=== PATIENT | female | born 1950 | race Caucasian/White ===

== ENCOUNTER 2016-07-31 16:46 | Inpatient (IN) | payer MEDICARE ==
[2016-07-31] MEDS ORDERED: ONDANSETRON 4 MG/2ML 2 ML VIAL ONE (17:55)
[2016-07-31] MEDS ORDERED: LACTATED RINGERS 1,000 ML ONE ×2 (17:55→18:52)
[2016-07-31 18:12] LABS: ABSOLUTE NEUTROPHIL COUNT 18.2 K/mm3 (1.8-7.7); BASO # 0.1 K/mm3 (0.0-0.2); BASO % 0.2 % (0.2-1.0); EOS # 0.3 (0.0-0.5); EOS % 1.3 % (0.9-2.9); HEMATOCRIT 46.6 % (37.0-47.0); IMM NEUT # 0.1 K/mm3 (0-0.2); IMM NEUT% 0.6 % (0-1); LYMPH # 0.6 (1.0-4.8); LYMPH % 3.2 % (15-45); MEAN CELL VOLUME 95.3 fl (81.0-99.0); MEAN CORPUSCULAR HEMOGLOBIN 30.7 pg (27.0-31.0); MEAN CORPUSCULAR HGB CONC 32.2 g/dl (33.0-37.0); MONO # 0.8 (0.0-0.8); MONO % 3.9 % (4-12); NEUT % 90.8 % (43-75); PLATELET COUNT 233 K/mm3 (130-400); RED CELL DISTRIBUTION WIDTH 12.8 % (11.5-14.5)
[2016-07-31 18:39] LABS: ALB/GLOB RATIO 1.2 (>1.0); ALBUMIN 4.3 gm/dL (3.5-5.7); CALCIUM 9.7 mg/dL (8.6-10.3)
[2016-07-31] MEDS ORDERED: PIPERACILLIN-TAZO PREMIX BAG 50 ML IV ONE (19:13)
[2016-07-31] MEDS ORDERED: VANCOMYCIN HCL 2 G in SODIUM CHLORIDE 0.9% 500 ML IV ONE (19:15)
[2016-07-31] MEDS ORDERED: VANCOMYCIN HCL 2.25 G in SODIUM CHLORIDE 0.9% 500 ML IV ONE (19:15)
[2016-07-31 19:40] LABS: BAND 4 % (0-10); BASOPHIL 0 % (0-1); EOSINOPHIL 1 % (1-3); LYMPHOCYTE 2 % (15-45); MONOCYTE 1 % (4-12); NEUTROPHILS 92 % (43-75); PLATELET ESTIMATE NORMAL (NORMAL); TOTAL CELLS COUNTED 100
[2016-07-31] MEDS ORDERED: ACETAMINOPHEN 500 MG TABLET ONE (19:44)
[2016-07-31 20:20] LABS: URINE BILIRUBIN NEGATIVE (NEGATIVE); URINE BLOOD 3+ (NEGATIVE); URINE GLUCOSE (UA) NEGATIVE (NEGATIVE); URINE LEUKOCYTE ESTERASE NEGATIVE (NEGATIVE); URINE NITRITE NEGATIVE (NEGATIVE); URINE PROTEIN TRACE (NEGATIVE); URINE UROBILINOGEN NORMAL (0-1 mg/dl)
[2016-07-31 20:23] LABS: URINE APPEARANCE CLEAR; URINE COLOR YELLOW
[2016-07-31] MEDS ORDERED: BISACODYL 10 MG SUP PR PRN (20:30)
[2016-07-31] MEDS ORDERED: MENTHOL/CETYLPYRD 1 EACH LOZENGE PO PRN (20:30)
[2016-07-31] MEDS ORDERED: INSULIN ASPART (DOSE) 100 UNITS/1 ML SUB-Q PRN (20:30)
[2016-07-31] MEDS ORDERED: BISACODYL 5 MG TABLET.EC PO PRN (20:30)
[2016-07-31] MEDS ORDERED: BLISTEX LIPSTICK 1 EACH TP PRN (20:30)
[2016-07-31] MEDS ORDERED: MAGNESIUM HYDROXIDE 30 ML UDCUP PO PRN (20:30)
[2016-07-31 20:46] VITALS: BMI 41.5
[2016-07-31 20:50] LABS: URINE EPITHELIAL CELLS 0-1 /hpf; URINE WBC 0-1 /hpf
[2016-07-31] MEDS: DOCUSATE SODIUM 100 MG CAPSULE PO SCH (20:51)
[2016-07-31] MEDS: HYDROCODONE/ACETAMINOPHEN 5/325MG TABLET PO PRN (20:51)
[2016-07-31] MEDS: LACTATED RINGERS 1,000 ML IV SCH (20:52)
[2016-07-31 20:53] LABS: URINE BACTERIA FEW
[2016-07-31 20:54] LABS: URINE AMORPHOUS SEDIMENT FEW URATES
[2016-07-31] MEDS ORDERED: ENOXAPARIN SODIUM 40 MG/0.4 ML SYRINGE SUB-Q SCH (21:00)
[2016-07-31] MEDS ORDERED: Clobetasol Propionate 0.05% TP PRN (21:12)
[2016-07-31] MEDS ORDERED: NITROGLYCERIN 0.4 MG/TAB.SUBL BOT SL PRN (21:12)
[2016-07-31] MEDS ORDERED: METFORMIN HCL 1,000 MG TABLET PO SCH (21:15)
[2016-07-31] MEDS ORDERED: POTASSIUM CHLORIDE 8 MEQ TABLET.DR PO ONE (21:28)
[2016-07-31] MEDS: DIPHENHYDRAMINE HCL 25 MG CAPSULE PO PRN (22:09)
[2016-07-31] MEDS: CYCLOBENZAPRINE HCL 10 MG TABLET PO PRN (22:09)
[2016-07-31] MEDS: METFORMIN XR 500 MG TAB.XL PO SCH (22:09)
[2016-07-31] MEDS: GABAPENTIN 300 MG CAPSULE PO SCH (22:11)
[2016-07-31] MEDS: OXYCODONE HCL 5 MG TABLET PO PRN (23:02)
[2016-08-01] MEDS: PIPERACILLIN-TAZO PREMIX BAG 3.375 G in Premix (D5W) 50 ml 1 EACH IV SCH ×4 (01:09→20:33)
[2016-08-01] MEDS: HYDROCODONE/ACETAMINOPHEN 5/325MG TABLET PO PRN ×2 (03:46→20:54)
[2016-08-01 05:43] LABS: ABSOLUTE NEUTROPHIL COUNT 24.9 K/mm3 (1.8-7.7); BASO # 0.1 K/mm3 (0.0-0.2); BASO % 0.2 % (0.2-1.0); EOS % 0.1 % (0.9-2.9); HEMATOCRIT 38.5 % (37.0-47.0); HEMOGLOBIN 12.5 gm/l (12.0-16.0); IMM NEUT # 0.3 K/mm3 (0-0.2); IMM NEUT% 1.2 % (0-1); LYMPH # 0.8 (1.0-4.8); MEAN CELL VOLUME 95.3 fl (81.0-99.0); MEAN CORPUSCULAR HEMOGLOBIN 30.9 pg (27.0-31.0); MEAN CORPUSCULAR HGB CONC 32.5 g/dl (33.0-37.0); MEAN PLATELET VOLUME 12.5 fl (7.4-10.4); MONO % 3.8 % (4-12); NEUT % 91.7 % (43-75); PLATELET COUNT 171 K/mm3 (130-400)
[2016-08-01 06:07] LABS: CALCIUM 8.5 mg/dL (8.6-10.3)
[2016-08-01] MEDS: LEVOTHYROXINE SODIUM 100 MCG TABLET PO SCH (07:09)
[2016-08-01] MEDS: OXYCODONE HCL 5 MG TABLET PO PRN ×2 (07:20→16:09)
[2016-08-01] MEDS: LACTATED RINGERS 1,000 ML IV SCH ×4 (07:30→23:02)
[2016-08-01] MEDS ORDERED: LACTATED RINGERS 500 ML IV ONE (08:10)
--- NOTE | 2016-08-01 08:20 | HP ---
Pennie Munson [id number] DATE OF ADMISSION: 07/31/2016 CHIEF COMPLAINT: Worsening skin infection. HISTORY OF PRESENT ILLNESS: The patient is a 66-year-old female who recently had a punch biopsy done on her left lower leg on July 29 and noticed chills this morning with a fever up to 101.4 degrees at 2:00 p.m. She did notice some redness in her lower leg and eventually her sister convinced her to come in for further evaluation. [facility] Workup in the emergency department revealed that she was tachycardic, had marked leukocytosis with lactic acidosis prompting her referral to the hospitalist service for admission. REVIEW OF SYSTEMS: Significant for fever and chills starting today as I mentioned. She denies any recent upper respiratory symptoms, cough, or chest pain. She has chronic dyspnea on exertion which is unchanged. She denies any orthopnea or nocturnal dyspnea. She has some chronic lower extremity edema which is at baseline. She denies nausea, vomiting, abdominal pain, diarrhea, or constipation. She does suffer from chronic back pain which is unchanged. She denies any headaches, fainting, blackouts, or seizures. She has had no urinary complaints. Review of systems is otherwise negative. PAST MEDICAL HISTORY: Significant for glucose intolerance treated with metformin. She has had a history of intermittent chest pain relieved with nitroglycerin despite a negative cardiac workup. She does have chronic diastolic congestive heart failure. She was hospitalized about two years ago for chest pain and had an angiogram at that time. She is followed by a brush holder assembler. She has had a remote history of obstructive sleep apnea, but reports she was told after a repeat sleep study that she did not need CPAP therapy and has not used CPAP for the last six years. She reports being hospitalized at [facility] about 5 to 7 years ago for an MRSA infection involving the right arm and leg and she has had no recent hospitalizations. She also has a history of hypothyroidism, gastroesophageal reflux disease, and chronic dermatitis. She has had multiple skin cancers and followed by heavy forger. 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 She had a benign tumor removed from her left hand years ago. She had arthroscopic surgery on the left knee. She had surgery on the left foot for removal of a bone spur. She has had previous laparoscopic cholecystectomy. She has had a previous hysterectomy with bilateral oophorectomy and incidental appendectomy. She had a coronary angiogram about 2013 which was clear. ALLERGIES: DOCUMENTED TO CODEINE, LATEX, NICKEL, SULFA, WALNUTS, ZITHROMAX, BUPRENORPHINE, KEFLEX, AND ADHESIVE TAPE. CURRENT MEDICATIONS: Consist of: 1. Lasix 20 mg every morning. 2. Spironolactone 50 mg daily. 3. Prilosec 20 mg daily. 4. Nitroglycerin 0.4 mg sublingual every 5 minutes as needed for chest pain. 5. Metformin 1000 mg at bedtime. 6. Melatonin 3 mg at bedtime as needed for sleep. 7. Claritin 10 mg daily for allergies. 8. Levothroid 100 mcg daily. 9. Neurontin 300 mg twice daily. 10. Flonase nasal spray two sprays in each nostril daily. 11. Estrace 0.5 mg daily. 12. Flexeril 5 mg at bedtime as needed for pain. 13. Clobesol propionate 1 application topically to skin rash twice daily as needed. 14. Tylenol 325 mg every four hours as needed for pain or fever. FAMILY HISTORY: Significant for a father who in his 30's of an abdominal aortic aneurysm due to complications from the repair. Her mother of lung cancer. She has an aunt and a daughter with diabetes. SOCIAL HISTORY: Patient currently is single. She lives with her sister. She has a son and two daughters. 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 She drinks alcohol socially. Denies drug use or tobacco use. Her primary care provider is Isabel Charles at [facility]. PHYSICAL EXAMINATION: VITAL SIGNS: Body mass index 41.6, weight 113 kg, temperature 99.0, pulse 104, blood pressure 136/76, respirations 18, oxygen saturation is 96% on room air. GENERAL: This is an obese female in no acute distress. HEENT: Shows pupils equal, round, and reactive to light. Extraocular movements are intact. No oral lesions are present. NECK: Supple without lymphadenopathy or thyromegaly. LUNGS: Clear to auscultation bilaterally. CARDIOVASCULAR: Reveals a regular tachycardia without a murmur. ABDOMEN: Obese, soft, nontender, nondistended with positive bowel sounds. GENITOURINARY: Deferred. RECTAL: Deferred. EXTREMITIES: Show trace lower extremity edema. She has circumferential erythema involving the left lower leg from approximately the ankle to below the knee. The skin edges were marked. She has full range of motion at the ankle and the knee. She has approximately a 1 cm scab in the anterior left lower leg which appears to be the source of infection. There is some ecchymotic area extending about 3 cm in all directions from the ulcerated scab. There is no active drainage. No fluctuance. Dorsalis pedis pulses are 2+ at both feet. LABORATORY STUDIES: Showed a CBC with a white count of 20,000, hemoglobin is 15, platelet count is 233,000 with 92% neutrophils, 4% bands. Initial lactate was 2.4, follow up lactate was coming down to 2.1. Chemistry profile showed a sodium of 136, potassium 3.5, carbon dioxide 26, creatinine 0.9, glucose 107. Liver function tests were normal. Urinalysis was remarkable for 3+ blood, but otherwise clear. ASSESSMENT: Cellulitis involving the left lower leg with severe sepsis as demonstrated by lactic acidosis, tachycardia and marked leukocytosis. She has morbid obesity which complicates her care as well as glucose intolerance. She has a history of chronic diastolic heart failure which seems to be stable. She has a history of hypothyroidism which seems to be stable. Gastroesophageal reflux disease, stable. Chronic allergic rhinitis, stable. Chronic back pain, stable. PLAN: Patient has been admitted to the intermediate care unit. She received part of a 30 mL/kg bolus. At this point she is hemodynamically stable and I will maintain her on lactated ringers at 125 mL per hour. Will get a follow up lactate in the morning. She will be covered with vancomycin and Zosyn. I do feel this is probably a Streptococcal infection and will consider switching her to an anti-Streptococcal regimen in the next 48 hours as long as her cultures remain negative and she is stable and improving. Deep venous thrombosis risk is moderate and await adjusted Lovenox dose has been prescribed. Further treatment and recommendations will depend on her hospital course. JOB: [id number] CC: Isabel Charles NP at [facility]
[2016-08-01] MEDS ORDERED: SPIRONOLACTONE 50 MG TABLET PO SCH (09:00)
[2016-08-01] MEDS ORDERED: FUROSEMIDE 20 MG TABLET PO SCH (09:00)
[2016-08-01] MEDS ORDERED: FLUTICASONE PROPIONATE 50 MCG/SPRAY 120 SPRAYS/16 G INH NS SCH (09:00)
[2016-08-01] MEDS ORDERED: OMEPRAZOLE 20 MG CAPSULE.DR PO SCH (09:00)
[2016-08-01] MEDS: GABAPENTIN 300 MG CAPSULE PO SCH ×2 (09:20→20:54)
[2016-08-01] MEDS: PANTOPRAZOLE 40 MG TABLET DR PO SCH (09:20)
[2016-08-01] MEDS: ENOXAPARIN SODIUM 40 MG/0.4 ML SYRINGE SUB-Q SCH ×2 (09:20→20:53)
[2016-08-01] MEDS: LORATADINE 10 MG TABLET PO SCH (09:20)
[2016-08-01] MEDS: DOCUSATE SODIUM 100 MG CAPSULE PO SCH ×2 (09:20→20:54)
[2016-08-01] MEDS: ESTRADIOL 0.5 MG TABLET PO SCH (09:20)
--- NOTE | 2016-08-01 11:01 | PDOC43 ---
- Subjective Chief Complaint: FEVER Subjective: Denies Chest Pain, Denies Abdominal Pain, Denies Vomiting, Denies Fever - Objective Vital Signs Temperature 98.2 F 08/01/16 07:45 Pulse Rate 72 08/01/16 07:45 Respiratory Rate 16 08/01/16 07:45 Blood Pressure 106/59 08/01/16 07:45 O2 Saturation by Pulse Oximetry 97 08/01/16 07:45 Oxygen Delivery Method Room Air Oxygen Flow Rate 0 Intake and Output 07/31/16 08/01/16 08/02/16 06:59 06:59 06:59 Intake Total 3836 Output Total 625 Balance 3211 General: Alert, Oriented x3, Cooperative, Mild Distress HEENT: Mucous membr. moist/pink Lungs: Clear to Auscultation Bilaterally Cardiovascular: Regular Rate and Rhythm Abdomen: Soft, Normal Bowel Sounds, Non-Distended, No Tenderness Extremities: Edema (STABLE) Skin: Erythema (REGRESSING) Wound: Dressing Clean/Dry/Intact Laboratory 08/01/16 05:15 08/01/16 05:15 08/01/16 07/31/16 05:15 21:00 RBC 4.04 L MCHC 32.5 L VBG Lactate 2.1 H Estimated GFR 38 L Calcium 8.5 L % Immature Granulocyt 1.2 H Current Medications: Current meds reviewed in EMR. - Problems: Assessment/Plan (1) Cellulitis Qualifiers: Site of cellulitis of extremity: lower extremity Laterality: left Status: AcuteAssessment/Plan: with severe sepsis(lactic acidosis, acute kidney injury and leukocytosis) improving on zosyn and vancomycin, await Cx results - consider transition to oral meds in am (2) ELENA (acute kidney injury) Status: AcuteAssessment/Plan: due to sepsis and dehydration - will follow, holding lasix and spironolactone (3) Morbid obesity with BMI of 40.0-44.9, adult Status: ChronicAssessment/Plan: complicates care (4) CHF (congestive heart failure) Qualifiers: Congestive heart failure type: diastolic Congestive heart failure chronicity: chronic Qualifier Code: (I50.32) Chronic diastolic (congestive) heart failure Status: AcuteAssessment/Plan: stable, will follow, holding lasix and spironolactone (5) Glucose intolerance (impaired glucose tolerance) Status: ChronicAssessment/Plan: cont. 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
[2016-08-01] MEDS: DIPHENHYDRAMINE HCL 25 MG CAPSULE PO PRN ×2 (14:58→20:55)
[2016-08-01] MEDS ORDERED: VANCOMYCIN HCL 2 G in SODIUM CHLORIDE 0.9% 500 ML IV SCH (20:00)
[2016-08-01] MEDS: METFORMIN XR 500 MG TAB.XL PO SCH (20:54)
[2016-08-01] MEDS: CYCLOBENZAPRINE HCL 10 MG TABLET PO PRN (20:58)
--- NOTE | 2016-08-01 22:49 | PDOC36 ---
Provider Note Subject: Patient with outpatient lasix. Inpatient IVF's and held Lasix. Developing crackles. IVF's discontinued. Reeval in am and may add back diuretic at that time depending on BP and labs.
[2016-08-02] MEDS: PIPERACILLIN-TAZO PREMIX BAG 3.375 G in Premix (D5W) 50 ml 1 EACH IV SCH ×4 (02:26→20:14)
[2016-08-02 07:22] LABS: ABSOLUTE NEUTROPHIL COUNT 15.9 K/mm3 (1.8-7.7); BASO # 0.1 K/mm3 (0.0-0.2); BASO % 0.4 % (0.2-1.0); EOS # 0.6 (0.0-0.5); EOS % 3.4 % (0.9-2.9); HEMATOCRIT 35.7 % (37.0-47.0); HEMOGLOBIN 11.9 gm/l (12.0-16.0); IMM NEUT # 0.1 K/mm3 (0-0.2); IMM NEUT% 0.7 % (0-1); LYMPH % 5.3 % (15-45); MEAN CELL VOLUME 94.2 fl (81.0-99.0); MEAN CORPUSCULAR HEMOGLOBIN 31.4 pg (27.0-31.0); MEAN CORPUSCULAR HGB CONC 33.3 g/dl (33.0-37.0); MONO % 5.4 % (4-12); NEUT % 84.8 % (43-75); PLATELET COUNT 150 K/mm3 (130-400); RED CELL DISTRIBUTION WIDTH 13.2 % (11.5-14.5)
[2016-08-02] MEDS: LEVOTHYROXINE SODIUM 100 MCG TABLET PO SCH (07:37)
[2016-08-02 07:45] LABS: VANCOMYCIN TROUGH 7.7 ug/ml (5.0-10.0)
[2016-08-02] MEDS: ESTRADIOL 0.5 MG TABLET PO SCH (08:30)
[2016-08-02] MEDS: ENOXAPARIN SODIUM 40 MG/0.4 ML SYRINGE SUB-Q SCH ×2 (08:30→20:14)
[2016-08-02] MEDS: PANTOPRAZOLE 40 MG TABLET DR PO SCH (08:30)
[2016-08-02] MEDS: DOCUSATE SODIUM 100 MG CAPSULE PO SCH ×2 (08:30→20:14)
[2016-08-02] MEDS: VANCOMYCIN HCL 1.25 G in SODIUM CHLORIDE 0.9% 250 ML IV SCH (08:30)
[2016-08-02] MEDS: LORATADINE 10 MG TABLET PO SCH (08:30)
[2016-08-02] MEDS: GABAPENTIN 300 MG CAPSULE PO SCH ×2 (08:30→20:14)
[2016-08-02] MEDS: HYDROCODONE/ACETAMINOPHEN 5/325MG TABLET PO PRN ×3 (09:31→22:15)
--- NOTE | 2016-08-02 12:25 | PDOC43 ---
- Subjective Chief Complaint: FEVER Subjective: Reports Pain Tolerable, Denies Shortness of Breath, Denies Chest Pain, Denies Fever - Objective Vital Signs Temperature 99.0 F 08/02/16 07:45 Pulse Rate 80 08/02/16 07:45 Respiratory Rate 18 08/02/16 07:45 Blood Pressure 111/57 08/02/16 07:45 O2 Saturation by Pulse Oximetry 96 08/02/16 07:45 Oxygen Delivery Method Room Air Oxygen Flow Rate 0 Intake and Output 08/01/16 08/02/16 08/03/16 06:59 06:59 06:59 Intake Total 3836 5455 Output Total 625 2800 Balance 3211 2655 General: Alert, Oriented x3, Cooperative, No Acute Distress HEENT: Mucous membr. moist/pink Lungs: Clear to Auscultation Bilaterally Cardiovascular: Regular Rate and Rhythm Abdomen: Soft, Normal Bowel Sounds, Non-Distended, No Tenderness Extremities: Edema (trace to one plus) Skin: Erythema (improving) Laboratory 08/02/16 07:07 08/02/16 07:07 08/02/16 07:07 RBC 3.79 L MCH 31.4 H Estimated GFR 35 L Current Medications: Current meds reviewed in EMR. - Problems: Assessment/Plan (1) Cellulitis Qualifiers: Site of cellulitis of extremity: lower extremity Laterality: left Status: AcuteAssessment/Plan: with severe sepsis(lactic acidosis, acute kidney injury and leukocytosis) improving on zosyn and vancomycin, await Cx results - consider transition to oral meds in am (2) ELENA (acute kidney injury) Status: AcuteAssessment/Plan: due to sepsis and dehydration - will follow, holding lasix and spironolactone (3) Morbid obesity with BMI of 40.0-44.9, adult Status: ChronicAssessment/Plan: complicates care (4) CHF (congestive heart failure) Qualifiers: Congestive heart failure type: diastolic Congestive heart failure chronicity: chronic Qualifier Code: (I50.32) Chronic diastolic (congestive) heart failure Status: AcuteAssessment/Plan: stable, will follow, holding lasix and spironolactone (5) Glucose intolerance (impaired glucose tolerance) Status: ChronicAssessment/Plan: cont. 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
[2016-08-02] MEDS: CYCLOBENZAPRINE HCL 10 MG TABLET PO PRN (20:14)
[2016-08-02] MEDS: METFORMIN XR 500 MG TAB.XL PO SCH (20:14)
[2016-08-03] MEDS: PIPERACILLIN-TAZO PREMIX BAG 3.375 G in Premix (D5W) 50 ml 1 EACH IV SCH ×2 (02:20→07:29)
[2016-08-03 06:19] LABS: ABSOLUTE NEUTROPHIL COUNT 8.9 K/mm3 (1.8-7.7); BASO # 0.1 K/mm3 (0.0-0.2); BASO % 0.7 % (0.2-1.0); EOS # 0.9 (0.0-0.5); EOS % 7.2 % (0.9-2.9); HEMATOCRIT 39.1 % (37.0-47.0); HEMOGLOBIN 12.4 gm/l (12.0-16.0); IMM NEUT # 0.1 K/mm3 (0-0.2); IMM NEUT% 0.5 % (0-1); LYMPH # 1.5 (1.0-4.8); LYMPH % 11.9 % (15-45); MEAN CELL VOLUME 95.6 fl (81.0-99.0); MEAN CORPUSCULAR HEMOGLOBIN 30.3 pg (27.0-31.0); MEAN CORPUSCULAR HGB CONC 31.7 g/dl (33.0-37.0); MEAN PLATELET VOLUME 12.4 fl (7.4-10.4); MONO # 0.8 (0.0-0.8); MONO % 6.7 % (4-12); PLATELET COUNT 174 K/mm3 (130-400); RED CELL DISTRIBUTION WIDTH 13.2 % (11.5-14.5)
[2016-08-03 06:39] LABS: CALCIUM 9.4 mg/dL (8.6-10.3)
[2016-08-03] MEDS ORDERED: PUMP TUBING ONE (07:13)
[2016-08-03] MEDS: LEVOTHYROXINE SODIUM 100 MCG TABLET PO SCH (07:29)
[2016-08-03] MEDS: SODIUM CHLORIDE 0.9% 100 ML IV PRN (07:29)
[2016-08-03] MEDS: VANCOMYCIN HCL 1.25 G in SODIUM CHLORIDE 0.9% 250 ML IV SCH (08:33)
--- NOTE | 2016-08-03 08:34 | PDOC43 ---
- Subjective Chief Complaint: FEVER Subjective: Reports Pain Tolerable, Reports Tolerating Diet Well, Denies Fever - Objective Vital Signs Temperature 97.9 F 08/03/16 07:34 Pulse Rate 73 08/03/16 07:34 Respiratory Rate 18 08/03/16 07:38 Blood Pressure 145/72 08/03/16 07:34 O2 Saturation by Pulse Oximetry 94 08/03/16 07:34 Oxygen Delivery Method Room Air Oxygen Flow Rate 0 Intake and Output 08/02/16 08/03/16 08/04/16 06:59 06:59 06:59 Intake Total 5455 2335 Output Total 2800 3800 Balance 2655 -1465 General: Alert, Oriented x3, Cooperative, No Acute Distress HEENT: Mucous membr. moist/pink Lungs: Clear to Auscultation Bilaterally Cardiovascular: Regular Rate and Rhythm Abdomen: Soft, Normal Bowel Sounds, Non-Distended, No Tenderness Extremities: Edema (trace to one plus) Skin: Erythema (stable - has not progressed beyond lines but carbonation equipment tender and warm) Laboratory 08/03/16 05:30 08/03/16 05:30 08/03/16 05:30 RBC 4.09 L MCHC 31.7 L Estimated GFR 41 L Current Medications: Current meds reviewed in EMR. - Problems: Assessment/Plan (1) Cellulitis Qualifiers: Site of cellulitis of extremity: lower extremity Laterality: left Status: AcuteAssessment/Plan: with severe sepsis(lactic acidosis, acute kidney injury and leukocytosis) and Group A strep bacteremia improving on zosyn and vancomycin, Cx results show PCN susceptible - will switch to high dose amoxicillin(augmentin plus amoxil due to morbid obesity) and monitor an additional 24hrs (2) ELENA (acute kidney injury) Status: AcuteAssessment/Plan: improving, due to severe sepsis - will resume lasix and spironolactone in am (3) Morbid obesity with BMI of 40.0-44.9, adult Status: ChronicAssessment/Plan: complicates care (4) CHF (congestive heart failure) Qualifiers: Congestive heart failure type: diastolic Congestive heart failure chronicity: chronic Qualifier Code: (I50.32) Chronic diastolic (congestive) heart failure Status: AcuteAssessment/Plan: stable, will follow, holding lasix and spironolactone due to ELENA, but will resume in am (5) Glucose intolerance (impaired glucose tolerance) Status: ChronicAssessment/Plan: cont. 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
[2016-08-03] MEDS: ENOXAPARIN SODIUM 40 MG/0.4 ML SYRINGE SUB-Q SCH ×2 (10:00→21:26)
[2016-08-03] MEDS: AMOX 875 MG/CLAV 125 MG 1 EACH TABLET PO SCH ×2 (10:00→21:27)
[2016-08-03] MEDS: DOCUSATE SODIUM 100 MG CAPSULE PO SCH ×2 (10:01→21:27)
[2016-08-03] MEDS: GABAPENTIN 300 MG CAPSULE PO SCH ×2 (10:01→21:26)
[2016-08-03] MEDS: AMOXICILLIN TRIHYDRATE 500 MG CAPSULE PO SCH ×2 (10:01→21:28)
[2016-08-03] MEDS: PANTOPRAZOLE 40 MG TABLET DR PO SCH (10:01)
[2016-08-03] MEDS: LORATADINE 10 MG TABLET PO SCH (10:01)
[2016-08-03] MEDS: ESTRADIOL 0.5 MG TABLET PO SCH (12:41)
[2016-08-03] MEDS: HYDROCODONE/ACETAMINOPHEN 5/325MG TABLET PO PRN ×2 (15:40→21:27)
[2016-08-03] MEDS ORDERED: DOCOSANOL 10% TP PRN (17:30)
[2016-08-03] MEDS: METFORMIN XR 500 MG TAB.XL PO SCH (21:27)
[2016-08-03] MEDS: DIPHENHYDRAMINE HCL 25 MG CAPSULE PO PRN (21:27)
[2016-08-03] MEDS: CYCLOBENZAPRINE HCL 10 MG TABLET PO PRN (21:28)
[2016-08-04 06:34] LABS: ABSOLUTE NEUTROPHIL COUNT 7.9 K/mm3 (1.8-7.7); BASO % 0.3 % (0.2-1.0); EOS # 0.8 (0.0-0.5); EOS % 7.3 % (0.9-2.9); HEMOGLOBIN 12.7 gm/l (12.0-16.0); IMM NEUT # 0.1 K/mm3 (0-0.2); IMM NEUT% 0.9 % (0-1); LYMPH # 1.1 (1.0-4.8); MEAN CELL VOLUME 96.6 fl (81.0-99.0); MEAN CORPUSCULAR HEMOGLOBIN 30.7 pg (27.0-31.0); MEAN CORPUSCULAR HGB CONC 31.8 g/dl (33.0-37.0); MEAN PLATELET VOLUME 11.5 fl (7.4-10.4); MONO # 0.8 (0.0-0.8); MONO % 7.3 % (4-12); NEUT % 74.2 % (43-75); PLATELET COUNT 197 K/mm3 (130-400); RED CELL DISTRIBUTION WIDTH 13.2 % (11.5-14.5)
[2016-08-04] MEDS: LEVOTHYROXINE SODIUM 100 MCG TABLET PO SCH (07:41)
[2016-08-04] MEDS: GABAPENTIN 300 MG CAPSULE PO SCH ×2 (09:42→21:35)
[2016-08-04] MEDS: ENOXAPARIN SODIUM 40 MG/0.4 ML SYRINGE SUB-Q SCH ×2 (09:42→21:35)
[2016-08-04] MEDS: AMOX 875 MG/CLAV 125 MG 1 EACH TABLET PO SCH (09:42)
[2016-08-04] MEDS: PANTOPRAZOLE 40 MG TABLET DR PO SCH (09:42)
[2016-08-04] MEDS: AMOXICILLIN TRIHYDRATE 500 MG CAPSULE PO SCH (09:42)
[2016-08-04] MEDS: DOCUSATE SODIUM 100 MG CAPSULE PO SCH ×2 (09:42→21:35)
[2016-08-04] MEDS: LORATADINE 10 MG TABLET PO SCH (09:42)
[2016-08-04] MEDS: ESTRADIOL 0.5 MG TABLET PO SCH (10:07)
--- NOTE | 2016-08-04 12:36 | PDOC43 ---
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 Some redness proximally, but it's not tender at that area. Some diffuse nonpruritic, nontender morbilliform rash noted on abd, neck since starting amoxicillin. Eating ok, breathing doing well. RN reports pt's use of pain medication much improved. - Objective Vital Signs Temperature 98.5 F 08/04/16 07:24 Pulse Rate 75 08/04/16 07:24 Respiratory Rate 16 08/04/16 07:24 Blood Pressure 126/61 08/04/16 07:24 O2 Saturation by Pulse Oximetry 96 08/04/16 07:24 Oxygen Delivery Method Room Air Oxygen Flow Rate 0 Vital Signs Last 12 Hours Temp Pulse Resp BP Pulse Ox 08/04/16 07:24 98.5 F 75 16 126/61 96 08/04/16 03:53 97.8 F 75 16 132/72 99 08/04/16 03:00 16 Intake and Output 08/02/16 08/03/16 08/04/16 23:59 23:59 23:59 Intake Total 2933 3012 940 Output Total 4000 3150 1850 Balance -1067 -138 -910 General: Alert, Cooperative, No Acute Distress HEENT: Atraumatic Lungs: Clear to Auscultation Bilaterally, Normal Air Movement Cardiovascular: Regular Rate and Rhythm Abdomen: Soft, Normal Bowel Sounds, Non-Distended Skin: Other (Light diffuse erythematous morbilliform rash on abd, neck. L lower leg with (previous) biopsy site, diffuse moderate erythema on lower L leg. Tenderness noted on lower leg. Some lower L thigh erythema, not tender.) Laboratory 08/04/16 06:20 08/04/16 06:20 08/04/16 06:20 RBC 4.14 L MCHC 31.8 L Estimated GFR 45 L Blood culture with Strep pyogenes, Current Medications: Current meds reviewed in EMR. Active Medications Acetaminophen (Tylenol) 650 mg PO Q6H PRN PRN Reason: Pain or Temperature > 100.5 F Acetaminophen/Hydrocodone Bitart ([place] 5/325) 1 - 2 tab PO Q4H PRN PRN Reason: Pain Last Admin: 08/03/16 21:27 Dose: 2 tab Amoxicillin (Trimox) 500 mg PO BID SIA Last Admin: 08/04/16 09:42 Dose: 500 mg Amoxicillin/Clavulanate Potassium (Augmentin-875) 1 each PO BID [facility] Last Admin: 08/04/16 09:42 Dose: 1 each Benzocaine/Menthol (Cepacol) 1 each PO PRN PRN PRN Reason: Sore Throat Bisacodyl (Dulcolax) 10 mg NV DAILY PRN PRN Reason: Constipation Bisacodyl (Dulcolax) 5 mg PO DAILY PRN PRN Reason: Constipation Cyclobenzaprine HCl (Flexeril) 5 mg PO BEDTIME PRN PRN Reason: muscle spasms Last Admin: 08/03/16 21:28 Dose: 5 mg Diphenhydramine HCl (Benadryl) 25 mg PO Q4H PRN PRN Reason: Itching Last Admin: 08/03/16 21:27 Dose: 25 mg Docusate Sodium (Colace) 100 mg PO BID [facility] Last Admin: 08/04/16 09:42 Dose: 100 mg Enoxaparin Sodium (Lovenox) 40 mg SUB-Q BID [facility] Last Admin: 08/04/16 09:42 Dose: 40 mg Estradiol (Estrace) 0.5 mg PO DAILY [facility] Last Admin: 08/04/16 10:07 Dose: 0.5 mg [facility] (Lasix) [facility] [place] Gabapentin (Neurontin) 300 mg PO BID [facility] Last Admin: 08/04/16 09:42 Dose: 300 mg Sodium Chloride (Sodium Chloride 0.9%) 100 mls @ 25 mls/hr IV PRN PRN PRN Reason: Flush Last Admin: 08/03/16 07:29 Dose: 25 mls/hr Levothyroxine Sodium (Levothroid) 100 mcg PO QAMAC [facility] Last Admin: 08/04/16 07:41 Dose: 100 mcg Loratadine (Claritin) 10 mg PO DAILY [facility] Last Admin: 08/04/16 09:42 Dose: 10 mg Magnesium Hydroxide (Milk Of Magnesia) 30 ml PO DAILY PRN PRN Reason: Constipation Melatonin (Melatonin) 3 mg PO BEDTIME PRN PRN Reason: Insomnia Metformin HCl (Glucophage Xr) 1,000 mg PO BEDTIME [facility] Last Admin: 08/03/16 21:27 Dose: 1,000 mg Miscellaneous (Abreva) 1 applic TP PID PRN PRN Reason: Cold sores Nitroglycerin (Nitrostat) 0.4 mg SL Q5M PRN PRN Reason: Chest Pain Oxycodone HCl (Roxicodone) 5 - 10 mg PO Q3H PRN PRN Reason: Pain Last Admin: 08/01/16 16:09 Dose: 5 mg Pantoprazole Sodium (Protonix) 40 mg PO DAILY SIA Last Admin: 08/04/16 09:42 Dose: 40 mg Petrolatum/Paraffin/Mineral Oil (Blistex) 1 each TP PRN PRN PRN Reason: Dry and/or chapped lips Sodium Chloride (Normal Saline 10ml Flush) 10 - 50 ml IV PRN PRN PRN Reason: IV Flush Last Admin: 08/03/16 07:29 Dose: 10 ml Sodium Chloride (Normal Saline 10ml Flush) 10 ml IV Q8HR SIA Last Admin: 08/04/16 09:42 Dose: 10 ml Spironolactone (Aldactone) 50 mg PO DAILY [facility] - Problems: Assessment/Plan (1) Cellulitis Qualifiers: Site of cellulitis of extremity: lower extremity Laterality: left Status: AcuteAssessment/Plan: with severe sepsis (lactic acidosis, acute kidney injury and leukocytosis) Group A strep bacteremia Temp and BP and WBC improved. Leg with some continued redness noted. With new rash, would consider allergy to amoxicillin, so consider revision to other linezolid. Clindamycin with only Intermediate sensitivity. (2) ELENA (acute kidney injury) Status: AcuteAssessment/Plan: resolved, due to severe sepsis - Resumed lasix and spironolactone (3) Glucose intolerance (impaired glucose tolerance) Status: ChronicAssessment/Plan: cont. metformin Glucose well controlled. Laboratory Tests 08/02/16 08/03/16 07:07 05:30 Glucose 100 101 H (4) Morbid obesity with BMI of 40.0-44.9, adult Status: ChronicAssessment/Plan: complicates care. VTE Prophylaxis: Lovenox at weight adjusted dose Disposition: likely home, but would like to see good progress in erythema, pain.
[2016-08-04] MEDS: LINEZOLID 600 MG TABLET PO SCH (13:12)
[2016-08-04] MEDS: OXYCODONE HCL 5 MG TABLET PO PRN ×2 (13:22→16:19)
[2016-08-04] MEDS: DIPHENHYDRAMINE HCL 25 MG CAPSULE PO PRN ×2 (18:04→21:45)
[2016-08-04] MEDS: METFORMIN XR 500 MG TAB.XL PO SCH (21:35)
[2016-08-04] MEDS: HYDROCODONE/ACETAMINOPHEN 5/325MG TABLET PO PRN (21:45)
[2016-08-04] MEDS: CLINDAMYCIN 600 MG PREMIX 600 MG in Premix (D5W) 50 ml 1 EACH IV SCH (22:36)
[2016-08-05] MEDS: LINEZOLID 600 MG TABLET PO SCH ×2 (00:15→12:32)
[2016-08-05] MEDS ORDERED: SODIUM CHLORIDE 0.9% IV SCH (01:00)
[2016-08-05] MEDS ORDERED: CLINDAMYCIN PHOSPHATE IV SCH (01:00)
[2016-08-05] MEDS ORDERED: PUMP TUBING ONE (05:39)
[2016-08-05 05:51] LABS: ABSOLUTE NEUTROPHIL COUNT 7.3 K/mm3 (1.8-7.7); BASO # 0.1 K/mm3 (0.0-0.2); BASO % 0.6 % (0.2-1.0); EOS % 8.5 % (0.9-2.9); HEMOGLOBIN 11.8 gm/l (12.0-16.0); IMM NEUT # 0.2 K/mm3 (0-0.2); IMM NEUT% 1.5 % (0-1); LYMPH % 17.1 % (15-45); MEAN CELL VOLUME 96.4 fl (81.0-99.0); MEAN CORPUSCULAR HEMOGLOBIN 30.7 pg (27.0-31.0); MEAN CORPUSCULAR HGB CONC 31.9 g/dl (33.0-37.0); MEAN PLATELET VOLUME 11.6 fl (7.4-10.4); MONO # 1.2 (0.0-0.8); NEUT % 62.3 % (43-75); PLATELET COUNT 200 K/mm3 (130-400); RED CELL DISTRIBUTION WIDTH 13.1 % (11.5-14.5)
[2016-08-05] MEDS: CLINDAMYCIN 600 MG PREMIX 600 MG in Premix (D5W) 50 ml 1 EACH IV SCH ×3 (05:54→21:24)
[2016-08-05] MEDS: SODIUM CHLORIDE 0.9% 100 ML IV PRN (05:54)
[2016-08-05 06:15] LABS: CALCIUM 8.9 mg/dL (8.6-10.3)
--- NOTE | 2016-08-05 06:47 | CONS ---
Pennie Munson [id number] DATE OF SERVICE: 08/04/2016 I had the pleasure of seeing Mrs. Munson at the request of hospitalist today. HISTORY OF PRESENT ILLNESS: Mrs. Munson is a very pleasant 66-year-old female who recently underwent two biopsies of possible skin cancers on her left leg, one at the mid thigh and one in the anterior portion of the lower leg in the region of the gold. She did well after the biopsy, but unfortunately developed a red cellulitis extending from the ankle to just below the knee. She was admitted to [facility] and initially started on antibiotics. A blood culture revealed Streptococcus pyogenes in blood culture. She was switched to a penicillin, but unfortunately developed a reaction and rash associated with the penicillin and was changed to Laniazid. She has been on antibiotics for approximately 3 days and has had an improvement in her white count which was 20. On admission had a level of 27.2 on the 14th and now is at 10.6 which is improving as well as her platelets are also normal. PAST MEDICAL HISTORY: Mrs. Munson has previous acute kidney injury, suffers from chronic heart failure, has BMI greater than 40, suffers from glucose intolerance without evidence of prosper diabetes and hypothyroidism. PHYSICAL EXAMINATION: GENERAL: Mrs. Munson is her stated age. SKIN: She clearly has swelling in the right lower leg with an erythematous cellulitic rash extending from the ankle to just below the knee on the right leg. She has additional rash consistent with reaction to the penicillin extending into her left leg and onto her arms and right leg. With the region of cellulitis on the left lower leg she has had no progression since it was initially marked on her admission approximately three days ago. The leg is swollen approximately one and a half times the size in comparison to the right leg. She has painful edematous cellulitic skin. She has no evidence of bulli or sloughing. No evidence of crepitus or evidence of manifestations of necrotizing fasciitis. The skin again is painful, but without evidence of subcutaneous abscess or edematous nodules. I had a long discussion today with Mrs. Munson. She certainly has a cellulitis which appears to be related to an infection with Streptococcal pyogenes related to her biopsy of her left lower leg. This skin manifestation of cellulitis has not changed since her admission approximately three days ago although, she does appear to be clinically doing well without evidence of organ failure or evidence of necrotizing fasciitis. Her white count has improved from 27,000 down to just above normal at 10.6 today. At this point I recommend proceeding with a ultrasound of the lower leg to rule out associated deep venous thrombosis and associated clot . I would also recommend that she be placed on clindamycin in addition to the Laniazid for potential control of toxin which may be released by the Streptococcal pyogenes. At this point, I do not see an indication for surgical intervention. She does not have evidence of a compartment syndrome and there is no drainable abscess at this point and again no evidence of necrotizing fasciitis. Plan to follow along closely and would be happy to see her back at any time if she has worsening of her condition. JOB: [id number]
[2016-08-05] MEDS: ENOXAPARIN SODIUM 40 MG/0.4 ML SYRINGE SUB-Q SCH ×2 (08:02→21:23)
--- NOTE | 2016-08-05 08:02 | US ---
ADDENDUM #1 A portion of the findings should've stated "the deep venous system of the left lower extremity from the popliteal vein up to the common femoral vein is patent without evidence of DVT. " First rib was a typographical error. The remainder of the report remains the same. ORIGINAL REPORT Exam: Left lower extremity venous ultrasound COMPARISON: None INDICATION: Left calf cellulitis. Recent calf biopsy. Redness and swelling. FINDINGS: The deep venous system of the left lower extremity was evaluated with color flow, compression, augmentation and spectral analysis. Peroneal vein was difficult to evaluate due to pain and swelling, nevertheless did appear patent with color flow. Posterior tibial veins are patent. The deep venous system of left first rib and the popliteal vein up to the common femoral vein is patent without evidence of DVT. IMPRESSION: Slightly limited evaluation of the left peroneal vein, however there is no evidence of DVT in the left lower extremity. Preliminary [facility] 0037 hours 08/05/2016.
[2016-08-05] MEDS: DOCUSATE SODIUM 100 MG CAPSULE PO SCH ×2 (08:03→21:22)
[2016-08-05] MEDS: GABAPENTIN 300 MG CAPSULE PO SCH ×2 (08:03→21:23)
[2016-08-05] MEDS: PANTOPRAZOLE 40 MG TABLET DR PO SCH (08:03)
[2016-08-05] MEDS: LORATADINE 10 MG TABLET PO SCH (08:03)
[2016-08-05] MEDS: LEVOTHYROXINE SODIUM 100 MCG TABLET PO SCH (08:03)
[2016-08-05] MEDS: ESTRADIOL 0.5 MG TABLET PO SCH (08:03)
--- NOTE | 2016-08-05 08:12 | PDOC43 ---
- Subjective Chief Complaint: Fever, strep cellulitis Patient reports leg still with pain, thor when she gets up. No fevers, chills, sweats. Not itching. No respiratory c/o. Does mention noise outside her room as a concern. - Objective Vital Signs Temperature 98.3 F 08/05/16 07:13 Pulse Rate 78 08/05/16 07:13 Respiratory Rate 14 08/05/16 07:13 Blood Pressure 123/62 08/05/16 07:13 O2 Saturation by Pulse Oximetry 95 08/05/16 07:13 Oxygen Delivery Method Room Air Oxygen Flow Rate 0 Vital Signs Last 12 Hours Temp Pulse Resp BP Pulse Ox 08/05/16 07:13 98.3 F 78 14 123/62 95 08/05/16 04:00 98.3 F 80 16 122/74 95 08/05/16 03:00 16 08/05/16 00:00 98.3 F 75 16 118/59 94 08/04/16 21:00 18 08/04/16 20:00 98.5 F 81 18 151/70 99 Intake and Output 08/03/16 08/04/16 08/05/16 23:59 23:59 23:59 Intake Total 3012 2740 450 Output Total 3150 3050 1400 Balance -138 -310 -950 General: Alert, Cooperative, Mild Distress (more irritated) HEENT: Atraumatic Lungs: Clear to Auscultation Bilaterally Cardiovascular: Regular Rate and Rhythm Abdomen: Soft Extremities: Edema (unchanged L lower extrem edema.) Skin: Other (erythema across lower left leg, minimally improved. 2 biopsy sites present, healing/scabbed. Upper chest, abdomen, arms with light petechial rash at site of previous morbiliform rash.) Neurological: Normal Speech Laboratory 08/05/16 05:30 08/05/16 05:30 08/05/16 05:30 RBC 3.84 L MCHC 31.9 L Estimated GFR 45 L % Immature Granulocyt 1.5 H Current Medications: Current meds reviewed in EMR. Active Medications Acetaminophen (Tylenol) 650 mg PO Q6H PRN PRN Reason: Pain or Temperature > 100.5 F Acetaminophen/Hydrocodone Bitart ([place] 5/325) 1 - 2 tab PO Q4H PRN PRN Reason: Pain Last Admin: 08/04/16 21:45 Dose: 2 tab Benzocaine/Menthol (Cepacol) 1 each PO PRN PRN PRN Reason: Sore Throat Bisacodyl (Dulcolax) 10 mg [place] DAILY PRN PRN Reason: Constipation Bisacodyl (Dulcolax) 5 mg PO DAILY PRN PRN Reason: Constipation Diphenhydramine HCl (Benadryl) 25 mg PO Q4H PRN PRN Reason: Itching Last Admin: 08/04/16 21:45 Dose: 25 mg Docusate Sodium (Colace) 100 mg PO BID [facility] Last Admin: 08/04/16 21:35 Dose: 100 mg Enoxaparin Sodium (Lovenox) 40 mg SUB-Q BID [facility] Last Admin: 08/04/16 21:35 Dose: 40 mg Estradiol (Estrace) 0.5 mg PO DAILY [facility] Last Admin: 08/04/16 10:07 Dose: 0.5 mg Furosemide (Lasix) 20 mg PO QAM [facility] Gabapentin (Neurontin) 300 mg PO BID [facility] Last Admin: 08/04/16 21:35 Dose: 300 mg Sodium Chloride (Sodium Chloride 0.9%) 100 mls @ 25 mls/hr IV PRN PRN PRN Reason: Flush Last Admin: 08/05/16 05:54 Dose: 25 mls/hr Clindamycin HCl/Dextrose 600 (mg/ Premix (D5W) 50 ml) 50 mls @ 150 mls/hr IV Q8H [facility] Last Admin: 08/05/16 05:54 Dose: 150 mls/hr Levothyroxine Sodium (Levothroid) 100 mcg PO QAMAC [facility] Last Admin: 08/04/16 07:41 Dose: 100 mcg Linezolid (Zyvox 600 Mg Tablet) 600 mg PO Q12H [facility] Last Admin: 08/05/16 00:15 Dose: 600 mg Loratadine (Claritin) 10 mg PO DAILY [facility] Last Admin: 08/04/16 09:42 Dose: 10 mg Magnesium Hydroxide (Milk Of Magnesia) 30 ml PO DAILY PRN PRN Reason: Constipation Melatonin (Melatonin) 3 mg PO BEDTIME PRN PRN Reason: Insomnia Metformin HCl (Glucophage Xr) 1,000 mg PO BEDTIME [facility] Last Admin: 08/04/16 21:35 Dose: 1,000 mg Miscellaneous (Abreva) 1 applic TP PID PRN PRN Reason: Cold sores Nitroglycerin (Nitrostat) 0.4 mg SL Q5M PRN PRN Reason: Chest Pain Oxycodone HCl (Roxicodone) 5 - 10 mg PO Q3H PRN PRN Reason: Pain Last Admin: 08/04/16 16:19 Dose: 5 mg Pantoprazole Sodium (Protonix) 40 mg PO DAILY [facility] Last Admin: 08/04/16 09:42 Dose: 40 mg Petrolatum/Paraffin/Mineral Oil (Blistex) 1 each TP PRN PRN PRN Reason: Dry and/or chapped lips Sodium Chloride (Normal Saline 10ml Flush) 10 - 50 ml IV PRN PRN PRN Reason: IV Flush Last Admin: 08/03/16 07:29 Dose: 10 ml Sodium Chloride (Normal Saline 10ml Flush) 10 ml IV Q8HR [facility] Last Admin: 08/05/16 00:15 Dose: 10 ml Spironolactone (Aldactone) 50 mg PO DAILY [facility] - Problems: Assessment/Plan (1) Cellulitis Qualifiers: Site of cellulitis of extremity: lower extremity Laterality: left Status: AcuteAssessment/Plan: with severe sepsis (lactic acidosis, acute kidney injury and leukocytosis) Group A strep bacteremia cultured. Temp and BP improved. WBC improved, but up some from yesterday. Leg with some continued redness noted. Revised to linezolid due to rash (08/04). Clindamycin with only Intermediate sensitivity, but added to address toxin production 08/04. Appreciate surgical input. U/S did not suggest DVT (2) ELENA (acute kidney injury) Status: AcuteAssessment/Plan: resolved, due to severe sepsis - Resumed lasix and spironolactone. Cr 1.2 (3) Glucose intolerance (impaired glucose tolerance) Status: ChronicAssessment/Plan: cont. metformin Glucose remains well controlled. (4) Morbid obesity with BMI of 40.0-44.9, adult Status: ChronicAssessment/Plan: complicates care. (5) Rash as adverse effect of penicillin Status: SuspectedAssessment/Plan: Patient's rash - morbilliform yesterday, now improved, but with a diffuse mild petechiae seen. Platelets 101 today. Will recheck in am. VTE Prophylaxis: Lovenox at weight adjusted dose Disposition: likely home, but would like to see good progress in erythema, pain before considering DC.
[2016-08-05] MEDS: OXYCODONE HCL 5 MG TABLET PO PRN ×2 (08:16→19:26)
[2016-08-05] MEDS: DIPHENHYDRAMINE HCL 25 MG CAPSULE PO PRN (13:19)
[2016-08-05] MEDS ORDERED: IV START KIT ONE (15:24)
[2016-08-05] MEDS: METFORMIN XR 500 MG TAB.XL PO SCH (21:22)
[2016-08-06] MEDS: LINEZOLID 600 MG TABLET PO SCH ×2 (00:04→13:07)
[2016-08-06] MEDS: MELATONIN 3 MG TABLET PO PRN (00:11)
[2016-08-06] MEDS: CLINDAMYCIN 600 MG PREMIX 600 MG in Premix (D5W) 50 ml 1 EACH IV SCH ×3 (05:59→21:21)
[2016-08-06 06:06] LABS: ABSOLUTE NEUTROPHIL COUNT 9.4 K/mm3 (1.8-7.7); BASO # 0.1 K/mm3 (0.0-0.2); BASO % 0.7 % (0.2-1.0); EOS % 6.4 % (0.9-2.9); HEMATOCRIT 38.2 % (37.0-47.0); HEMOGLOBIN 11.9 gm/l (12.0-16.0); IMM NEUT # 0.3 K/mm3 (0-0.2); IMM NEUT% 1.9 % (0-1); LYMPH # 2.9 (1.0-4.8); LYMPH % 19.3 % (15-45); MEAN CELL VOLUME 97.7 fl (81.0-99.0); MEAN CORPUSCULAR HEMOGLOBIN 30.4 pg (27.0-31.0); MEAN CORPUSCULAR HGB CONC 31.2 g/dl (33.0-37.0); MEAN PLATELET VOLUME 11.8 fl (7.4-10.4); MONO # 1.3 (0.0-0.8); MONO % 8.9 % (4-12); NEUT % 62.8 % (43-75); PLATELET COUNT 222 K/mm3 (130-400); RED CELL DISTRIBUTION WIDTH 13.2 % (11.5-14.5)
[2016-08-06] MEDS: LEVOTHYROXINE SODIUM 100 MCG TABLET PO SCH (07:13)
[2016-08-06] MEDS: ENOXAPARIN SODIUM 40 MG/0.4 ML SYRINGE SUB-Q SCH ×2 (09:25→21:21)
[2016-08-06] MEDS: OXYCODONE HCL 5 MG TABLET PO PRN ×2 (09:25→17:43)
[2016-08-06] MEDS: LORATADINE 10 MG TABLET PO SCH (09:26)
[2016-08-06] MEDS: PANTOPRAZOLE 40 MG TABLET DR PO SCH (09:26)
[2016-08-06] MEDS: GABAPENTIN 300 MG CAPSULE PO SCH ×2 (09:26→21:20)
[2016-08-06] MEDS: DOCUSATE SODIUM 100 MG CAPSULE PO SCH ×2 (09:27→21:22)
[2016-08-06] MEDS: ESTRADIOL 0.5 MG TABLET PO SCH (09:37)
--- NOTE | 2016-08-06 12:26 | PDOC43 ---
- Subjective Chief Complaint: Fever, strep cellulitis RN reports some blistering on posterior calf, still with pain. Feeling sl tired still. She notes some cough, sl wheeze; similar to previous times she's used an inhaler. She also notes recurrence of cold sores, previous use of Abreva. - Objective Vital Signs Temperature 98.1 F 08/06/16 07:49 Pulse Rate 73 08/06/16 11:19 Respiratory Rate 20 08/06/16 07:49 Blood Pressure 143/79 08/06/16 07:49 O2 Saturation by Pulse Oximetry 95 08/06/16 11:19 Oxygen Delivery Method Room Air Oxygen Flow Rate 0 Vital Signs Last 12 Hours Temp Pulse Resp BP Pulse Ox 08/06/16 11:19 73 95 08/06/16 07:49 98.1 F 73 20 143/79 92 08/06/16 07:18 16 08/06/16 03:10 98.3 F 78 18 127/64 94 08/06/16 03:00 18 Intake and Output 08/04/16 08/05/16 08/06/16 23:59 23:59 23:59 Intake Total 2740 1630 640 Output Total 3050 2450 1801 Balance -310 -820 -1161 General: Alert, Cooperative, Other (sl tired appearing.) HEENT: Other (cold sores on upper and lower lips.) Lungs: Other (air movement good, sl wheeze, rare crackles posterior base.) Abdomen: Soft, Normal Bowel Sounds, Non-Distended, No Tenderness, No Rebounding Extremities: Other (L lower leg with continued redness, tenderness. Posterior calf with some evidence of early blistering, up to 5x1.5 cm, plus some other scattered blisters. Tenderness noted. Some ongoing edema. Erythema seems to remain at original line.) Skin: Erythema, Induration, Other (petechial rash appears resolving, no progression.) Psych/Mental Status: Normal Affect, Other (dismayed at slow progress so far.) Laboratory 08/06/16 05:30 08/06/16 05:30 RBC 3.91 L MCHC 31.2 L % Immature Granulocyt 1.9 H Other labs still pending; analyzer is down this am. Current Medications: Current meds reviewed in EMR. Active Medications Acetaminophen (Tylenol) 650 mg PO Q6H PRN PRN Reason: Pain or Temperature > 100.5 F Acetaminophen/Hydrocodone Bitart ([place] 5/325) 1 - 2 tab PO Q4H PRN PRN Reason: Pain Last Admin: 08/04/16 21:45 Dose: 2 tab Benzocaine/Menthol (Cepacol) 1 each PO PRN PRN PRN Reason: Sore Throat Bisacodyl (Dulcolax) 10 mg [place] DAILY PRN PRN Reason: Constipation Bisacodyl (Dulcolax) 5 mg PO DAILY PRN PRN Reason: Constipation Diphenhydramine HCl (Benadryl) 25 mg PO Q4H PRN PRN Reason: Itching Last Admin: 08/05/16 13:19 Dose: 25 mg Docusate Sodium (Colace) 100 mg PO BID [facility] Last Admin: 08/06/16 09:27 Dose: Not Given Enoxaparin Sodium (Lovenox) 40 mg SUB-Q BID [facility] Last Admin: 08/06/16 09:25 Dose: 40 mg Estradiol (Estrace) 0.5 mg PO DAILY [facility] Last Admin: 08/06/16 09:37 Dose: 0.5 mg Furosemide (Lasix) 20 mg PO QAM [facility] Gabapentin (Neurontin) 300 mg PO BID [facility] Last Admin: 08/06/16 09:26 Dose: 300 mg Sodium Chloride (Sodium Chloride 0.9%) 100 mls @ 25 mls/hr IV PRN PRN PRN Reason: Flush Last Admin: 08/05/16 05:54 Dose: 25 mls/hr Clindamycin HCl/Dextrose 600 (mg/ Premix (D5W) 50 ml) 50 mls @ 150 mls/hr IV Q8H [facility] Last Admin: 08/06/16 05:59 Dose: 150 mls/hr Levothyroxine Sodium (Levothroid) 100 mcg PO QAMAC [facility] Last Admin: 08/06/16 07:13 Dose: 100 mcg Linezolid (Zyvox 600 Mg Tablet) 600 mg PO Q12H [facility] Last Admin: 08/06/16 00:04 Dose: 600 mg Loratadine (Claritin) 10 mg PO DAILY [facility] Last Admin: 08/06/16 09:26 Dose: 10 mg Magnesium Hydroxide (Milk Of Magnesia) 30 ml PO DAILY PRN PRN Reason: Constipation Melatonin (Melatonin) 3 mg PO BEDTIME PRN PRN Reason: Insomnia Last Admin: 08/06/16 00:11 Dose: 3 mg Metformin HCl (Glucophage Xr) 1,000 mg PO BEDTIME [facility] Last Admin: 08/05/16 21:22 Dose: 1,000 mg Miscellaneous (Abreva) 1 applic TP PID PRN PRN Reason: Cold sores Nitroglycerin (Nitrostat) 0.4 mg SL Q5M PRN PRN Reason: Chest Pain Oxycodone HCl (Roxicodone) 5 - 10 mg PO Q3H PRN PRN Reason: Pain Last Admin: 08/06/16 09:25 Dose: 5 mg Pantoprazole Sodium (Protonix) 40 mg PO DAILY [facility] Last Admin: 08/06/16 09:26 Dose: 40 mg Petrolatum/Paraffin/Mineral Oil (Blistex) 1 each TP PRN PRN PRN Reason: Dry and/or chapped lips Sodium Chloride (Normal Saline 10ml Flush) 10 - 50 ml IV PRN PRN PRN Reason: IV Flush Last Admin: 08/05/16 15:57 Dose: 20 ml Sodium Chloride (Normal Saline 10ml Flush) 10 ml IV Q8HR [facility] Last Admin: 08/06/16 09:25 Dose: 10 ml Spironolactone (Aldactone) 50 mg PO DAILY [facility] - Problems: Assessment/Plan (1) Cellulitis Qualifiers: Site of cellulitis of extremity: lower extremity Laterality: left Status: AcuteAssessment/Plan: with severe sepsis (lactic acidosis, acute kidney injury and leukocytosis) Group A strep bacteremia cultured. Temp and BP improved. WBC improved, but up some from yesterday. Leg with some continued redness noted. Revised to linezolid due to rash (08/04). Clindamycin with only Intermediate sensitivity, but added to address toxin production 08/04. Appreciate surgical input. U/S did not suggest DVT, but with ongoing erythema, pain, sl increased WBC - will check CT leg. (2) ELENA (acute kidney injury) Status: AcuteAssessment/Plan: resolved, due to severe sepsis - Resumed lasix and spironolactone. Cr 1.2 (3) Glucose intolerance (impaired glucose tolerance) Status: ChronicAssessment/Plan: cont. metformin Glucose remains well controlled. (4) Morbid obesity with BMI of 40.0-44.9, adult Status: ChronicAssessment/Plan: complicates care. (5) Rash as adverse effect of penicillin Status: SuspectedAssessment/Plan: Patient's rash - morbilliform initially on 08/04, now just diffuse mild petechiae seen, resolving. Platelets 222 08/06 VTE Prophylaxis: Lovenox at weight adjusted dose Disposition: anticipate return to home, but would like to see good progress in erythema, pain before considering DC.
[2016-08-06 13:18] LABS: ALB/GLOB RATIO 0.9 (>1.0); ALBUMIN 2.9 gm/dL (3.5-5.7)
[2016-08-06] MEDS ORDERED: DIPHENHYDRAMINE HCL 25 MG CAPSULE PO ONE ×2 (13:57→17:30)
[2016-08-06] MEDS: ACYCLOVIR 400 MG TABLET PO SCH ×2 (14:00→21:20)
[2016-08-06] MEDS: SODIUM CHLORIDE 0.9% 100 ML IV PRN (14:01)
[2016-08-06] MEDS ORDERED: HYDROCORTISONE SOD SUCC 100 MG VIAL IV ONE (14:30)
[2016-08-06] MEDS: ACETAMINOPHEN 325 MG TABLET PO PRN (17:44)
[2016-08-06] MEDS: ALBUTEROL/IPRATROPIUM 2.5/0.5 MG 3 ML/EACH DOSE NEB PRN (18:07)
[2016-08-06] MEDS ORDERED: IOPAMIDOL 370 (76%) IV.SOLN 150 ML IV ONE (18:49)
--- NOTE | 2016-08-06 19:32 | CT ---
LOWER EXT W/ CON LT HISTORY: Cellulitis. Question of fasciitis. COMPARISONS: DVT ultrasound 08/04/2016 TECHNIQUE: Contiguous axial 3 mm images of the left mid thigh through the foot are obtained of the uneventful IV administration of 120 cc of Isovue-370. Sagittal and coronal reformations were also obtained this time. Patient was premedicated secondary to iodine allergy. No adverse reaction was noted. CTDI: 33.0 DLP: 2705.6 FINDINGS: Skin thickening and edema along the dorsal aspect of the foot is identified with areas of reticular subcutaneous edema and skin thickening throughout much of the lower extremity, predominantly along the anterior and anterolateral aspect. There are several areas along the posterior aspect particularly below the knee similar findings. No evidence of soft tissue gas is present to suggest necrotizing fasciitis. Much of the inflammatory change below the knee is identified along the anteromedial lateral aspect, overlying the anterolateral musculature. Above the knee, this is noted to a lesser degree within the deep subcutaneous fat. No fracture or dislocation. Marrow fat is preserved. No evidence of focal osteolysis or periosteal reaction to suggest osteomyelitis, however these are late findings in the disease process. No focal, drainable fluid collection. No knee joint effusion. IMPRESSION: Findings of the patient's known cellulitis without evidence of abscess, or soft tissue gas. Given how much of the inflammatory changes are along the deeper aspect of the subcutaneous fat overlying the muscle layer, nonnecrotizing fasciitis is possible. Findings were called to Dr. Means at approximately 1926 hours on 08/06/2016.
[2016-08-06] MEDS: DIPHENHYDRAMINE HCL 25 MG CAPSULE PO PRN (21:20)
[2016-08-06] MEDS: METFORMIN XR 500 MG TAB.XL PO SCH (21:21)
[2016-08-06] MEDS: HYDROCODONE/ACETAMINOPHEN 5/325MG TABLET PO PRN (21:21)
[2016-08-07] MEDS: MELATONIN 3 MG TABLET PO PRN (00:19)
[2016-08-07] MEDS: LINEZOLID 600 MG TABLET PO SCH ×2 (00:41→12:10)
[2016-08-07] MEDS: LORAZEPAM 0.5 MG TABLET PO PRN ×2 (00:41→20:41)
[2016-08-07] MEDS: CLINDAMYCIN 600 MG PREMIX 600 MG in Premix (D5W) 50 ml 1 EACH IV SCH ×3 (06:04→21:49)
[2016-08-07 06:35] LABS: ABSOLUTE NEUTROPHIL COUNT 13.9 K/mm3 (1.8-7.7); BASO # 0.1 K/mm3 (0.0-0.2); BASO % 0.3 % (0.2-1.0); EOS # 0.1 (0.0-0.5); EOS % 0.6 % (0.9-2.9); HEMATOCRIT 36.3 % (37.0-47.0); HEMOGLOBIN 11.5 gm/l (12.0-16.0); IMM NEUT # 0.6 K/mm3 (0-0.2); IMM NEUT% 3.2 % (0-1); LYMPH # 2.3 (1.0-4.8); LYMPH % 12.5 % (15-45); MEAN CELL VOLUME 96.5 fl (81.0-99.0); MEAN CORPUSCULAR HEMOGLOBIN 30.6 pg (27.0-31.0); MEAN CORPUSCULAR HGB CONC 31.7 g/dl (33.0-37.0); MONO # 1.2 (0.0-0.8); MONO % 6.6 % (4-12); NEUT % 76.8 % (43-75); PLATELET COUNT 248 K/mm3 (130-400); RED CELL DISTRIBUTION WIDTH 13.1 % (11.5-14.5)
[2016-08-07 06:39] LABS: ALB/GLOB RATIO 0.9 (>1.0); ALBUMIN 2.9 gm/dL (3.5-5.7); CALCIUM 8.9 mg/dL (8.6-10.3)
[2016-08-07 07:44] LABS: BAND 0 % (0-10); BASOPHIL 0 % (0-1); EOSINOPHIL 0 % (1-3); LYMPHOCYTE 15 % (15-45); MONOCYTE 8 % (4-12); NEUTROPHILS 77 % (43-75); PLATELET ESTIMATE NORMAL (NORMAL); TOTAL CELLS COUNTED 100
[2016-08-07] MEDS: LEVOTHYROXINE SODIUM 100 MCG TABLET PO SCH (07:44)
[2016-08-07] MEDS: ENOXAPARIN SODIUM 40 MG/0.4 ML SYRINGE SUB-Q SCH ×2 (09:42→20:40)
[2016-08-07] MEDS: ACYCLOVIR 400 MG TABLET PO SCH ×3 (09:43→20:41)
[2016-08-07] MEDS: PANTOPRAZOLE 40 MG TABLET DR PO SCH (09:43)
[2016-08-07] MEDS: ESTRADIOL 0.5 MG TABLET PO SCH (09:43)
[2016-08-07] MEDS: DOCUSATE SODIUM 100 MG CAPSULE PO SCH ×2 (09:43→20:40)
[2016-08-07] MEDS: ALBUTEROL/IPRATROPIUM 2.5/0.5 MG 3 ML/EACH DOSE NEB PRN ×2 (09:50→19:53)
[2016-08-07] MEDS: GABAPENTIN 300 MG CAPSULE PO SCH ×2 (10:04→20:41)
[2016-08-07] MEDS: LORATADINE 10 MG TABLET PO SCH (10:04)
--- NOTE | 2016-08-07 12:34 | PDOC43 ---
- Subjective Chief Complaint: Fever, strep cellulitis of leg Patient reports pain generally improving in leg, but still sore along posterior/ medial aspect of calf. Stomach a little upset, but ok. No respiratory c/o. Cold sores resolving. No other rash noted. - Objective Vital Signs Temperature 97.7 F 08/07/16 07:38 Pulse Rate 71 08/07/16 09:50 Respiratory Rate 16 08/07/16 09:50 Blood Pressure 118/61 08/07/16 07:38 O2 Saturation by Pulse Oximetry 99 08/07/16 09:50 Oxygen Delivery Method Room Air Oxygen Flow Rate 0 Vital Signs Last 12 Hours Temp Pulse Resp BP Pulse Ox 08/07/16 09:50 71 16 99 08/07/16 08:00 20 08/07/16 07:38 97.7 F 70 20 118/61 96 08/07/16 03:00 98.2 F 75 18 122/66 95 08/07/16 01:00 18 Intake and Output 08/05/16 08/06/16 08/07/16 23:59 23:59 23:59 Intake Total 1630 1240 1930 Output Total 2450 2651 1125 Balance -820 -1411 805 General: Alert, Cooperative, No Acute Distress HEENT: Atraumatic Lungs: Clear to Auscultation Bilaterally, Normal Air Movement Cardiovascular: Regular Rate and Rhythm Abdomen: Soft, Normal Bowel Sounds, Non-Distended Extremities: Other (Erythema on L lower leg improved anteriorly. Healing scab from biopsy appears ok. Medial/posterior calf with induration/tenderness/ erythema still, some blistering and weeping posterior calf.) Skin: Normal Color (some generalized flushing, but patient reports this is her baseline. The petechial rash appears to be resolving) Neurological: Normal Speech Psych/Mental Status: Normal Affect Laboratory 08/07/16 05:30 08/07/16 05:30 08/07/16 08/06/16 05:30 05:30 RBC 3.76 L MCHC 31.7 L Estimated GFR 56 L 50 L Total Protein 6.2 L 6.2 L Albumin 2.9 L 2.9 L Albumin/Globulin Ratio 0.9 L 0.9 L % Immature Granulocyt 3.2 H Current Medications: Current meds reviewed in EMR. Active Medications Acetaminophen (Tylenol) 650 mg PO Q6H PRN PRN Reason: Pain or Temperature > 100.5 F Last Admin: 08/06/16 17:44 Dose: 650 mg Acetaminophen/Hydrocodone Bitart ([place] 5/325) 1 - 2 tab PO Q4H PRN PRN Reason: Pain Last Admin: 08/06/16 21:21 Dose: 2 tab Acyclovir (Zovirax) 800 mg PO TID [facility] Stop: 08/08/16 14:59 Last Admin: 08/07/16 09:43 Dose: 800 mg Albuterol/Ipratropium (Duoneb) 3 ml NEB Q6H PRN PRN Reason: Wheezing Last Admin: 08/07/16 09:50 Dose: 3 ml Benzocaine/Menthol (Cepacol) 1 each PO PRN PRN PRN Reason: Sore Throat Bisacodyl (Dulcolax) 10 mg [place] DAILY PRN PRN Reason: Constipation Bisacodyl (Dulcolax) 5 mg PO DAILY PRN PRN Reason: Constipation Diphenhydramine HCl (Benadryl) 25 mg PO Q4H PRN PRN Reason: Itching Last Admin: 08/06/16 21:20 Dose: 25 mg Docusate Sodium (Colace) 100 mg PO BID [facility] Last Admin: 08/07/16 09:43 Dose: Not Given Enoxaparin Sodium (Lovenox) 40 mg SUB-Q BID [facility] Last Admin: 08/07/16 09:42 Dose: 40 mg Estradiol (Estrace) 0.5 mg PO DAILY [facility] Last Admin: 08/07/16 09:43 Dose: 0.5 mg Furosemide (Lasix) 20 mg PO QAM [facility] Gabapentin (Neurontin) 300 mg PO BID [facility] Last Admin: 08/07/16 10:04 Dose: 300 mg Sodium Chloride (Sodium Chloride 0.9%) 100 mls @ 25 mls/hr IV PRN PRN PRN Reason: Flush Last Admin: 08/06/16 14:01 Dose: 25 mls/hr Clindamycin HCl/Dextrose 600 (mg/ Premix (D5W) 50 ml) 50 mls @ 150 mls/hr IV Q8H [facility] Last Admin: 08/07/16 06:04 Dose: 150 mls/hr Levothyroxine Sodium (Levothroid) 100 mcg PO QAMAC [facility] Last Admin: 08/07/16 07:44 Dose: 100 mcg Linezolid (Zyvox 600 Mg Tablet) 600 mg PO Q12H [facility] Last Admin: 08/07/16 12:10 Dose: 600 mg Loratadine (Claritin) 10 mg PO DAILY [facility] Last Admin: 08/07/16 10:04 Dose: 10 mg Lorazepam (Ativan) 0.5 mg PO BEDTIME PRN PRN Reason: Insomnia Last Admin: 08/07/16 00:41 Dose: 0.5 mg Magnesium Hydroxide (Milk Of Magnesia) 30 ml PO DAILY PRN PRN Reason: Constipation Melatonin (Melatonin) 3 mg PO BEDTIME PRN PRN Reason: Insomnia Last Admin: 08/07/16 00:19 Dose: 3 mg Metformin HCl (Glucophage Xr) 1,000 mg PO BEDTIME [facility] Last Admin: 08/06/16 21:21 Dose: 1,000 mg Miscellaneous (Abreva) 1 applic TP PID PRN PRN Reason: Cold sores Last Admin: 08/06/16 13:10 Dose: 1 applic Nitroglycerin (Nitrostat) 0.4 mg SL Q5M PRN PRN Reason: Chest Pain Oxycodone HCl (Roxicodone) 5 - 10 mg PO Q3H PRN PRN Reason: Pain Last Admin: 08/06/16 17:43 Dose: 5 mg Pantoprazole Sodium (Protonix) 40 mg PO DAILY [facility] Last Admin: 08/07/16 09:43 Dose: 40 mg Petrolatum/Paraffin/Mineral Oil (Blistex) 1 each TP PRN PRN PRN Reason: Dry and/or chapped lips Last Admin: 08/06/16 13:12 Dose: 1 bot Sodium Chloride (Normal Saline 10ml Flush) 10 - 50 ml IV PRN PRN PRN Reason: IV Flush Last Admin: 08/07/16 07:44 Dose: 10 ml Sodium Chloride (Normal Saline 10ml Flush) 10 ml IV Q8HR [facility] Last Admin: 08/07/16 10:04 Dose: 10 ml Spironolactone (Aldactone) 50 mg PO DAILY [facility] - Problems: Assessment/Plan (1) Cellulitis Qualifiers: Site of cellulitis: extremity Site of cellulitis of extremity: lower extremity Laterality: left Qualifier Code: (L03.116) Cellulitis of left lower limb Status: AcuteAssessment/Plan: with severe sepsis, Group A strep bacteremia. Present on admission Initially tx with Vancomycin and Zosyn 07/31 Revised to Amoxicillin/Augmentin 08/03-08/04; but developed rash Revised to linezolid (08/04). Clindamycin (only Intermediate sensitivity), added to address toxin production 08/04. Clinically better with reduced pain and swelling, but WBC elevated today; could be related to dose of solumedrol (for contrast sensitivity) Appreciate surgical input. U/S did not suggest DVT, but with ongoing erythema, pain, sl increased WBC CT leg done 08/06, no gas formation, but extensive inflammation is noted. (2) ELENA (acute kidney injury) Status: ResolvedAssessment/Plan: resolved, due to severe sepsis - Resumed lasix and spironolactone. Cr 1.0 on 08/07. (3) Glucose intolerance (impaired glucose tolerance) Status: ChronicAssessment/Plan: continue metformin Glucose remains well controlled. (4) Morbid obesity with BMI of 40.0-44.9, adult Status: ChronicAssessment/Plan: complicates care. (5) Rash as adverse effect of penicillin Status: SuspectedAssessment/Plan: Patient's rash - morbilliform initially on 08/04, now just resolving mild petechiae Attributed to amoxicillin/Augmentin VTE Prophylaxis: Lovenox at weight adjusted dose Disposition: anticipate return to home, but would like to see continued good progress in erythema, pain before considering DC.
--- NOTE | 2016-08-07 17:22 | PDOC43 ---
- Subjective Subjective: Reports Pain Tolerable, Denies Fever - Objective Vital Signs Temperature 98.2 F 08/07/16 13:03 Pulse Rate 76 08/07/16 13:03 Respiratory Rate 16 08/07/16 13:03 Blood Pressure 147/71 08/07/16 13:03 O2 Saturation by Pulse Oximetry 99 08/07/16 13:03 Oxygen Delivery Method Room Air Oxygen Flow Rate 0 Laboratory 08/07/16 05:30 08/07/16 05:30 08/07/16 05:30 RBC 3.76 L MCHC 31.7 L Estimated GFR 56 L Total Protein 6.2 L Albumin 2.9 L Albumin/Globulin Ratio 0.9 L % Immature Granulocyt 3.2 H Active Medication Orders Category Date Time Status Abreva Med 08/03/16 17:30 Active 1 applic TP PID PRN Acyclovir [Zovirax] Med 08/06/16 15:00 Active 800 mg PO TID Albuterol/Ipratropium 2.5/0.5 [Duoneb] Med 08/06/16 12:09 Active 3 ml NEB Q6H PRN Clindamycin 600 mg Premix [Cleocin-D5w 600 mg/50 ml] Med 08/04/16 22:15 Active 600 mg Premix (D5W) 50 ml 1 each IV Q8H Diphenhydramine HCl [Benadryl] Med 07/31/16 21:12 Active 25 mg PO Q4H PRN Enoxaparin Sodium [Lovenox] Med 08/01/16 09:00 Active 40 mg SUB-Q BID Estradiol [Estrace] Med 08/01/16 09:00 Active 0.5 mg PO DAILY Furosemide [Lasix] Med 08/01/16 09:00 Hold 20 mg PO QAM Gabapentin [Neurontin] Med 07/31/16 21:15 Active 300 mg PO BID Hydrocodone Bit/Acetaminophen [[place] 5/325] Med 07/31/16 20:41 Active 1 - 2 tab PO Q4H PRN Levothyroxine Sodium [Levothroid] Med 08/01/16 07:30 Active 100 mcg PO QAMAC Linezolid 600 mg Tablet [Zyvox 600 mg Tablet] Med 08/04/16 12:30 Active 600 mg PO Q12H Loratadine [Claritin] Med 08/01/16 09:00 Active 10 mg PO DAILY Lorazepam [Ativan] Med 08/06/16 22:29 Active 0.5 mg PO BEDTIME PRN Melatonin Med 07/31/16 21:12 Active 3 mg PO BEDTIME PRN Metformin Xr [Glucophage Xr] Med 07/31/16 22:00 Active 1,000 mg PO BEDTIME Nitroglycerin [Nitrostat] Med 07/31/16 21:12 Active 0.4 mg SL Q5M PRN Oxycodone HCl [Roxicodone] Med 07/31/16 21:16 Active 5 - 10 mg PO Q3H PRN Pantoprazole Sodium [Protonix] Med 08/01/16 09:00 Active 40 mg PO DAILY Sodium Chloride 0.9% Flush [Normal Saline 10ml Flush] Med 08/01/16 01:00 Active 10 ml IV Q8HR Spironolactone [Aldactone] Med 08/01/16 09:00 Hold 50 mg PO DAILY Intake and Output 08/06/16 08/07/16 08/08/16 06:59 06:59 06:59 Intake Total 1580 2470 1175 Output Total 2351 2175 550 Balance -771 295 625 General: Alert, Oriented x3 Wound: Erythema (lower leg. Maybe better by report. Tender posterioly. No clear abscess or bullae.) Neurological: Other (Numbness in foot from swelling) - Disposition No evidence of narcotizing soft tissue infection. CT scan demonstrates left limb cellulitis with no evidence of drainage collections or necrotizing infection. Elevation in WBCs may be from steroids. No acute indications for surgery - continue with antibiotics and close clinical follow up. Will follow with you.
[2016-08-07] MEDS: HYDROCODONE/ACETAMINOPHEN 5/325MG TABLET PO PRN (20:41)
[2016-08-07] MEDS: METFORMIN XR 500 MG TAB.XL PO SCH (20:41)
[2016-08-07] MEDS: DIPHENHYDRAMINE HCL 25 MG CAPSULE PO PRN (20:41)
[2016-08-08] MEDS: LINEZOLID 600 MG TABLET PO SCH ×2 (00:47→12:40)
[2016-08-08] MEDS ORDERED: PUMP TUBING ONE (05:37)
[2016-08-08] MEDS: CLINDAMYCIN 600 MG PREMIX 600 MG in Premix (D5W) 50 ml 1 EACH IV SCH ×2 (05:58→14:36)
[2016-08-08] MEDS: SODIUM CHLORIDE 0.9% 100 ML IV PRN (05:58)
[2016-08-08 06:39] LABS: ABSOLUTE NEUTROPHIL COUNT 9.1 K/mm3 (1.8-7.7); BASO # 0.1 K/mm3 (0.0-0.2); BASO % 0.7 % (0.2-1.0); EOS # 0.9 (0.0-0.5); EOS % 6.6 % (0.9-2.9); HEMATOCRIT 35.2 % (37.0-47.0); HEMOGLOBIN 11.7 gm/l (12.0-16.0); IMM NEUT # 0.3 K/mm3 (0-0.2); IMM NEUT% 2.2 % (0-1); LYMPH # 2.8 (1.0-4.8); LYMPH % 19.7 % (15-45); MEAN CELL VOLUME 94.6 fl (81.0-99.0); MEAN CORPUSCULAR HEMOGLOBIN 31.5 pg (27.0-31.0); MEAN CORPUSCULAR HGB CONC 33.2 g/dl (33.0-37.0); MONO # 0.9 (0.0-0.8); MONO % 6.3 % (4-12); NEUT % 64.5 % (43-75); PLATELET COUNT 295 K/mm3 (130-400); RED CELL DISTRIBUTION WIDTH 13.4 % (11.5-14.5)
[2016-08-08 07:03] LABS: ALB/GLOB RATIO 0.9 (>1.0); ALBUMIN 2.9 gm/dL (3.5-5.7); CALCIUM 8.7 mg/dL (8.6-10.3)
[2016-08-08 07:09] VITALS: BP 161/94
[2016-08-08] MEDS: LEVOTHYROXINE SODIUM 100 MCG TABLET PO SCH (07:30)
[2016-08-08] MEDS: ACETAMINOPHEN 325 MG TABLET PO PRN (07:30)
[2016-08-08] MEDS: ALBUTEROL/IPRATROPIUM 2.5/0.5 MG 3 ML/EACH DOSE NEB PRN (07:46)
--- NOTE | 2016-08-08 08:46 | PDOC43 ---
- Subjective Subjective: Reports Pain Tolerable (Better), Reports Other (Anxious to get out of room.) - Objective Vital Signs Temperature 98.5 F 08/08/16 07:08 Pulse Rate 73 08/08/16 07:45 Respiratory Rate 16 08/08/16 07:45 Blood Pressure 161/94 08/08/16 07:08 O2 Saturation by Pulse Oximetry 97 08/08/16 07:45 Oxygen Delivery Method Room Air Oxygen Flow Rate 0 Laboratory 08/08/16 05:57 08/08/16 05:57 08/08/16 05:57 RBC 3.72 L MCH 31.5 H Estimated GFR 50 L Total Protein 6.2 L Albumin 2.9 L Albumin/Globulin Ratio 0.9 L % Immature Granulocyt 2.2 H Active Medication Orders Category Date Time Status Abreva Med 08/03/16 17:30 Active 1 applic TP PID PRN Acyclovir [Zovirax] Med 08/06/16 15:00 Active 800 mg PO TID Albuterol/Ipratropium 2.5/0.5 [Duoneb] Med 08/06/16 12:09 Active 3 ml NEB Q6H PRN Clindamycin 600 mg Premix [Cleocin-D5w 600 mg/50 ml] Med 08/04/16 22:15 Active 600 mg Premix (D5W) 50 ml 1 each IV Q8H Diphenhydramine HCl [Benadryl] Med 07/31/16 21:12 Active 25 mg PO Q4H PRN Enoxaparin Sodium [Lovenox] Med 08/01/16 09:00 Active 40 mg SUB-Q BID Estradiol [Estrace] Med 08/01/16 09:00 Active 0.5 mg PO DAILY Furosemide [Lasix] Med 08/01/16 09:00 Hold 20 mg PO QAM Gabapentin [Neurontin] Med 07/31/16 21:15 Active 300 mg PO BID Hydrocodone Bit/Acetaminophen [[place] 5/325] Med 07/31/16 20:41 Active 1 - 2 tab PO Q4H PRN Levothyroxine Sodium [Levothroid] Med 08/01/16 07:30 Active 100 mcg PO QAMAC Linezolid 600 mg Tablet [Zyvox 600 mg Tablet] Med 08/04/16 12:30 Active 600 mg PO Q12H Loratadine [Claritin] Med 08/01/16 09:00 Active 10 mg PO DAILY Lorazepam [Ativan] Med 08/06/16 22:29 Active 0.5 mg PO BEDTIME PRN Melatonin Med 07/31/16 21:12 Active 3 mg PO BEDTIME PRN Metformin Xr [Glucophage Xr] Med 07/31/16 22:00 Active 1,000 mg PO BEDTIME Nitroglycerin [Nitrostat] Med 07/31/16 21:12 Active 0.4 mg SL Q5M PRN Oxycodone HCl [Roxicodone] Med 07/31/16 21:16 Active 5 - 10 mg PO Q3H PRN Pantoprazole Sodium [Protonix] Med 08/01/16 09:00 Active 40 mg PO DAILY Sodium Chloride 0.9% Flush [Normal Saline 10ml Flush] Med 08/01/16 01:00 Active 10 ml IV Q8HR Spironolactone [Aldactone] Med 08/01/16 09:00 Hold 50 mg PO DAILY Intake and Output 08/07/16 08/08/16 08/09/16 06:59 06:59 06:59 Intake Total 2470 1935 Output Total 2175 1650 Balance 295 285 General: Alert, Oriented x3 Wound: Erythema (Better. Tender posteriorly. Less swollen. Palpable DP pulse.) - Assessment/ Plan (1) Cellulitis Qualifiers: Site of cellulitis: extremity Site of cellulitis of extremity: lower extremity Laterality: left Qualifier Code: (L03.116) Cellulitis of left lower limb Status: AcuteAssessment/ Plan: No evidence of necrotizing soft tissue infection. CT scan demonstrates left limb cellulitis with no evidence of drainage collections or necrotizing infection. Elevation in WBC is better today. No acute indications for surgery - continue with antibiotics and close clinical follow up. Will follow at a distance. Call if new signs develop. Discussed with hospitalist.
[2016-08-08] MEDS: ENOXAPARIN SODIUM 40 MG/0.4 ML SYRINGE SUB-Q SCH (09:34)
[2016-08-08] MEDS: ACYCLOVIR 400 MG TABLET PO SCH (09:35)
[2016-08-08] MEDS: GABAPENTIN 300 MG CAPSULE PO SCH (09:35)
[2016-08-08] MEDS: LORATADINE 10 MG TABLET PO SCH (09:35)
[2016-08-08] MEDS: DOCUSATE SODIUM 100 MG CAPSULE PO SCH (09:35)
[2016-08-08] MEDS: PANTOPRAZOLE 40 MG TABLET DR PO SCH (09:35)
[2016-08-08] MEDS: ESTRADIOL 0.5 MG TABLET PO SCH (09:41)
[2016-08-08] MEDS ORDERED: ACYCLOVIR 400 MG TABLET PO ONE (15:00)
--- NOTE | 2016-08-09 19:02 | DS ---
CRISTEL CALVILLO [id number] DATE OF ADMISSION: July 31, 2016 DATE OF DISCHARGE: August 08, 2016 DISCHARGE DIAGNOSES: 1. Bacterial cellulitis of the left lower extremity associate with group A strep bacteremia presumably the cause of the cellulitis as well. 2. Patient also had severe sepsis. 3. Her treatment was complicated by morbid obesity and glucose intolerance. 4. She had acute kidney injury secondary to the severe sepsis. 5. She also developed an allergic dermatitis secondary to amoxicillin. 6. Herpes simplex stomatitis. SUMMARY OF ADMISSION AND HOSPITAL COURSE: The patient is a 66-year-old female with medical problems listed above who recently underwent a skin biopsy on the left leg. She developed erythema which progressed to fever and chills beginning 24 to 48 hours after the biopsy. On presentation she had white blood cell count of 20,000 with 4% bands, lactic acidosis of 2.4, an initial creatinine of 0.9. Her vitals were stable except for a tachycardia with a heart rate of 104. She was admitted to the hospitalist service and was treated with Zosyn and vancomycin. Blood cultures were obtained. Her blood cultures eventually grew group A strep which was showing intermediate sensitivity to clindamycin but was otherwise pansensitive. Patient remained on IV antibiotics through August 03, 2016, at which point she was converted to oral Augmentin and amoxicillin. In that 24-hour period, her cellulitis seemed to get worse. Surgical consultation was obtained with Dr. Rafiq Blankenship on August 04, 2016. He did not feel like the patient had any surgical needs with regard to the infection. Ultrasound of the lower extremity showed no evidence of abscess or deep venous thrombosis. She continued to have persistent inflammation and pain and such that a CT of the lower extremity was ordered on August 06, 2016. Again no drainable fluid collections were seen and the CT was consistent with cellulitis. The patient developed a morbilliform generalized rash around August 05 or 2016, and this was felt to be an allergic reaction to the amoxicillin. She was also noted to have elevated eosinophils on her lab work. On the day following admission, she did have a rise in her creatinine from 0.9 to 1.4 which peaked at 1.5 on August 02, 2016 and then trended downward to 1.1 by the day of discharge. This acute kidney injury was felt to be secondary to the severe sepsis. Upon discontinuation of the Augmentin and amoxicillin, patient was placed on Linezolid and had gradual improvement in her rash. She did receive a single dose of solumedrol for the rash and also in preparation for the IV contrast for the CT. By August 08, 2016, the patient's white blood cell count was down to 14,000. Her eosinophilia was improving, and her renal function was stable, and the cellulitis in her left leg was definitively improving although still present. Over the course of her stay, she did develop a little bit of skin breakdown on the posterior aspect of the left lower leg felt to be secondary to the infection and heat and moisture which has been managed with a moisturizer. Patient did develop herpes simplex outbreak around the oropharynx and was treated with acyclovir during her stay. PHYSICAL EXAM: VITAL SIGNS: Discharge vital signs showed a temperature of 98.5, pulse 73, blood pressure is 161/94, respirations 16, oxygen saturation 97% on room air. Body mass index 43.7. Weight is 119.2 kilograms. GENERAL: This is an obese female in no acute distress. HEENT: Is unremarkable. NECK: Supple without lymphadenopathy or thyromegaly. LUNGS: Are clear to auscultation bilaterally. CARDIOVASCULAR: Exam reveals a regular rate and rhythm without a murmur. ABDOMEN: Is soft, nontender, nondistended with positive bowel sounds. EXTREMITIES: Show increased warmth and erythema in the left lower extremity between the ankle and the knee, sparing the joints, with regression from the previously marked lines. She does have approximately a 1.5 to 2 cm skin biopsy wound which is circular in the anterior aspect of the left lower leg without active drainage. She also has drying of the skin posteriorly and some superficial skin breakdown which is difficult to measure because it is diffuse and intermittent. Her lower extremity pulses are 1+. She does have trace edema. LABORATORY STUDIES: On the day of discharge, metabolic panel showed a BUN of 16, creatinine 1.1. CBC showed a white count of 14, hemoglobin 11.7 and platelet count of 295,000. DISPOSITION: Home. DISCHARGE CONDITION: Good. REFERRALS: She is given a prescription for a front-wheeled walker and a followup appointment has been scheduled with her primary care provider, Emilee Charles at [facility] on August 13, 2016 at 0950. DISCHARGE MEDICATIONS: Include: 1. Metformin 1000 mg at bedtime. 2. Lasix 20 mg every morning. 3. Spironolactone 50 mg daily. 4. Prilosec 20 mg daily. 5. Nitroglycerin 0.4 mg sublingual every five minutes as needed for chest pain. 6. Melatonin 3 mg at bedtime as needed for sleep. 7. Claritin 10 mg daily. 8. Levothroid 100 mcg daily. 9. Neurontin 300 mg twice daily. 10. Flonase nasal spray two sprays in each nostril daily. 11. Estradiol 0.5 mg daily. 12. Flexeril 5 mg at bedtime as needed for spasms. 13. Clobetasol propionate one application topically twice daily to rash as needed. 14. Tylenol 325 mg every four hours as needed. 15. Oxycodone 5 to 10 mg every three hours as needed for pain was prescribed with 20 pills given. 16. She is also prescribed Linezolid 600 mg every 12 hours for 14 days. 17. Acyclovir 800 mg three times daily for five more days.
== END 2016-08-08 15:30 | disposition home or self-care (01) | DRG 872 ==
LOC: ED 16:46 → MS 19:03
PROVIDERS: ADMIT Family Medicine; ATTEND Family Medicine
DX: A40.0 Sepsis due to streptococcus, group A (principal); L03.116 Cellulitis of left lower limb; Z68.41 Body mass index [BMI] 40.0-44.9, adult; N17.9 Acute kidney failure, unspecified; B00.2 Herpesviral gingivostomatitis and pharyngotonsillitis; B95.0 Streptococcus, group A, as the cause of diseases classified elsewhere; R65.20 Severe sepsis without septic shock; E66.01 Morbid (severe) obesity due to excess calories; L23.89 Allergic contact dermatitis due to other agents; E74.39 Other disorders of intestinal carbohydrate absorption; K21.9 Gastro-esophageal reflux disease without esophagitis; G89.29 Other chronic pain; M54.9 Dorsalgia, unspecified